=== PATIENT | male | born 1950 | race Caucasian/White ===

== ENCOUNTER → 2021-12-27 14:39 | Outpatient (BNVA) | payer MEDICARE, OTHER, SELFPAY | PROVIDERS: PCP Internal Medicine; Visit Provider Nurse Practitioner Family | DX: G47.52 REM sleep behavior disorder (principal); R06.02 Shortness of breath | CPT/HCPCS: 99202 ==

== ENCOUNTER → 2022-07-01 10:17 | Outpatient (BNVA) | payer MEDICARE, OTHER, SELFPAY | PROVIDERS: PCP Internal Medicine; Visit Provider Nurse Practitioner Family | DX: G20 Parkinson's disease (principal); G47.52 REM sleep behavior disorder; F09 Unspecified mental disorder due to known physiological condition | CPT/HCPCS: 99212 ==

== ENCOUNTER → 2022-12-30 09:24 | Outpatient (BNVA) | payer MEDICARE, OTHER, SELFPAY | PROVIDERS: PCP Internal Medicine; Visit Provider Nurse Practitioner Family | DX: G20 Parkinson's disease (principal); F09 Unspecified mental disorder due to known physiological condition; G47.52 REM sleep behavior disorder | CPT/HCPCS: 99212 ==

== ENCOUNTER 2023-05-06 09:28 | Outpatient (AMB) | payer MEDICARE, OTHER, SELFPAY ==
[2023-05-06 09:29] VITALS: BP 102/60; PULSE 83; O2SAT 95; BMI 37.1
--- NOTE | 2023-05-06 09:29 | A.OFFVIS_ITS ---
Intake Vital Signs 05/06/23 09:29 Height 5 ft 8 in Weight 244 lb 4 oz BMI 37.1 BP 102/60 Blood Pressure Location Rt brachial Position Sitting Pulse 83 Pulse Source Pulse Oximeter Pulse Oximetry (%) 95 Oxygen Delivery Method Room Air Intake Visit Reasons: 4m follow up parkinson - Confirmed Intake Note: Pt presents as a 4 month f/u for Parkinsons. Pts states she finds him slowing down more and forgetting. shes also waiting for the neruopsych evaluation as she would like to know how much is dementia and how much is Parkinsons. Pt's states she doesn't see improvement with with carbidopa levodopa and she has questions about the usage. Field Associate Required: No Accompanied by: Spouse Allergies benazepril Allergy (Intermediate, Verified 05/06/23 09:38) Cough duloxetine Allergy (Intermediate, Verified 05/06/23 09:38) Rash sertraline Allergy (Intermediate, Verified 05/06/23 09:38) Rash HPI HPI Comments History of Present Illness Details 72-yr-old male presents for f/u visit, accompanied by his . Pt denies any significant interval medical history changes. Pt's current PD medication regimen: CD-LD 25-100mg 1 tab bid. Pt is slower overall Pt is Ind w/ ADLs Pt reports tremor is better, but the tremor is more noticeable when holding a plate or a tool Pt's is concerned that pt's cognition is slower. For instance, pt's had a significant sudden bleed from her leg and pt was very slow to provide help. Pt himself states that she was giving conflicting directions but acknoledges that he did have some difficulty thinking of ways to troubleshoot. notes that in the past 6 months pt has had increased episodes of becoming verbally abusive- he becomes frustrated and yells at her. He denies depression, but endorses that he may feel anxious. He deneis any REM sleep behaviors but is restless at night. He is scheduled for a f/u ? in-lab PAP titration study through [facility]- Dr Collazo. He has not had neuro-psych eval yet. [facility] Medical History Aortic valve calcification Asthma, mild persistent Benign lipomatous neoplasm of skin and subcutaneous tissue COPD (chronic obstructive pulmonary disease) COVID-19 virus infection DM type 2 with diabetic peripheral neuropathy Erectile dysfunction Essential familial hypercholesterolemia HTN (hypertension) Memory loss Morbid obesity Nephrolithiasis LUIS ANTONIO (obstructive sleep apnea) Osteopenia Parkinson disease Rheumatic arteritis Rheumatoid arthritis Right lower lobe pulmonary nodule Right-sided Herrera's palsy Family History Father Diabetes Daughter Colon cancer Social History (Updated 05/06/23 @ 09:41 by Mackenzie Patel CMA) Household Members: Spouse Housing: House Alcohol intake: current Alcohol intake frequency: holidays/special occasions only Patient Tobacco Use Status: Former Tobacco user Review of Systems Const All systems reviewed & are unremarkable except as noted in HPI and below Physical Exam Vital Signs: Last Vital Signs Pulse 83 05/06/23 09:29 BP 102/60 05/06/23 09:29 Pulse Ox 95 05/06/23 09:29 Oxygen Delivery Method Room Air 05/06/23 09:29 BMI result Body Mass Index 37.1 Const General: cooperative and no acute distress Resp Effort & Inspection: normal respiratory effort and able to speak in complete sentences Neuro Other: Expression:? Mild decrease expression Voice:? Mildly soft voice Tremor:? Mild RUE rest tremor Tone:? Mild bilateral upper extremity rigidity Dyskinesia: n/a FFM:? Bilateral upper extremity mildly decreased Foot taps:? Bilateral lower extremity mildly bradykinetic Gait:? Stands slowly, right shoulder slightly dropped, slight decrease in arm swing stride okay. Psych:? Pleasant affect. Mild bradyohrenia Assessment & Plan Assessment & Plan (1) Parkinson disease: Code(s): G20 - Parkinson's disease (2) REM sleep behavior disorder: Code(s): G47.52 - REM sleep behavior disorder (3) Cognitive dysfunction: Code(s): F09 - Unspecified mental disorder due to known physiological condition Plan Continue CD-LD 25-100mg 1 tab bid- taken w/ small amt CHO. Continue clonazepam 0.5mg and melatonin q.h.s. Continue to keep bedroom free from clutter. Will f/u on referral for comprehensive neuropsych eval. Offered referal back to psycholoist- however pt is not interested at this time. Monitor mood. given info on PD support resources. Future consideration- optimizing venlafaxine tx. Coding Level of Care Code Est Pt Level 4 (18060) Diagnoses Parkinson disease G20 REM sleep behavior disorder G47.52 Cognitive dysfunction F09
== END 2023-05-06 10:42 | disposition home or self-care (01) ==
PROVIDERS: Visit Provider Nurse Practitioner Family
DX: G20 Parkinson's disease (principal); G47.52 REM sleep behavior disorder; R41.89 Other symptoms and signs involving cognitive functions and awareness
CPT/HCPCS: 99214

== ENCOUNTER → 2023-05-06 09:28 | Outpatient (BNVA) | payer MEDICARE, OTHER, SELFPAY | PROVIDERS: Visit Provider Nurse Practitioner Family | DX: G20 Parkinson's disease (principal); G47.52 REM sleep behavior disorder; F09 Unspecified mental disorder due to known physiological condition | CPT/HCPCS: 99212 ==

== ENCOUNTER 2023-09-10 12:42 | Outpatient (AMB) | payer MEDICARE, OTHER, SELFPAY ==
--- NOTE | 2023-09-10 12:59 | A.OFFVIS_ITS ---
Intake Vital Signs 09/10/23 13:02 Height 5 ft 8 in Weight 257 lb BMI 39.1 BP 110/64 Blood Pressure Location Rt brachial Position Sitting Pulse 85 Pulse Source Pulse Oximeter Pulse Oximetry (%) 95 Oxygen Delivery Method Room Air Intake Visit Reasons: 4m follow up parkinson-Confirmed Intake Note: Patient presents for 4 month follow up. Allergies benazepril Allergy (Intermediate, Verified 09/10/23 13:03) Cough duloxetine Allergy (Intermediate, Verified 09/10/23 13:03) Rash sertraline Allergy (Intermediate, Verified 09/10/23 13:03) Rash Medication List - Last Reconciled 09/10/23 by Amy Ventura, NICK albuterol sulfate 90 mcg/actuation 2 puffs PO QID PRN alpha lipoic acid 600 mg PO DAILY atorvastatin 40 mg PO DAILY carbidopa-levodopa 25-100 mg 1 tab PO BID 90 days clonazepam 0.5 mg PO DAILY PRN diclofenac sodium 75 mg PO BID PRN dulaglutide (Trulicity) 1.5 mg subcut QWEEK fluticasone propionate 50 mcg/actuation 1 spray intranasal BID folic acid 1 mg PO DAILY losartan 100 mg PO DAILY melatonin 20 mg PO BEDTIME metformin 1,000 mg PO BID methotrexate sodium 10 mg PO QWEEK multivitamin 1 tab PO DAILY omega 8-fmh-bhp-fish oil-krill 700 mg-600 mg- 900 mg (MegaRed Advanced 4-in-1) caps PO tamsulosin (Flomax) 0.4 mg PO BEDTIME venlafaxine ER 37.5 mg PO BID HPI HPI Comments History of Present Illness Details 73-yr-old xander presents for f/u visit, accompanied by his . Pt reports the following interval medical history changes: He has 2 recent UTIs, one was a/w sepsis and required hospitalization. F/b Dr Gomez. notes his initial s/s was worsening memory and moving slower, as well as urinary frequency. Pt's current PD medication regimen: CD-LD 25-100mg 1 tab bid Do medication effects last between doses: he does not notice. He did have the neuro-psych eval- which showed predominant difficulties with processing speed and aspects of executive function (e.g., set shifting and learning), which likely underscore some of his performances in other cognitive domains (e.g., word retrieval and speeded tasks) and appear related to his described difficulties in daily life. Memory was variable, and in part, may also be related to these disruptions. Overall, this pattern of performance is most consistent with frontal subcortical dysfunction , which meet criteria for mild Major Neurocognitive Disorder, of somewhat unclear etiology although concerning for a neurodegenerative process, especially in the context of a diagnosis of Parkinson?s disease. The report did raise ? of DLB as some cognitive difficulties seem to have preceded onset of PD motor symptoms, however pt has not had significant hallucinations. is wondering about doing f/u brain MRI or PET scan. Pt will begin participating in a new PD program through [employer] (unclear what the program is)- in the next few months. ADL's: Ind Swallowing: No issues Drooling: Some right sided drooling Orthostatic lightheadedness: Denies Constipation: Denies Freezing: Denies Stiffness: Denies Tremor: Notices tremor if holding something, now in BUE, still more so on the right Falls: None Hallucinations: Sometimes may feel that he sees something moving in his periphery. Memory: Some word retrieval difficulties. Forgets what he is about to say. Sleep: Voiding at least 4 times per night- on Flomax. He is still sleep talking. He may sleep on the couch- as it is more comfortable than the bed sometimes- states this area is free from clutter or obstacles where he could be injured. There is a gate to the cellar stairs. Exercise: Not much. just bought [employer] puppy- to encourage him to walk more. 09/24/21, Brain MRI wo: IMPRESSION: No evidence of acute or subacute infarct. Mild nonspecific white matter signal changes which most likely reflect chronic small vessel disease. Fluid in the left maxillary sinus can be correlated for clinical evidence of acute sinusitis. Fluid in the left mastoid air cells is nonspecific. [facility] Medical History (Updated 09/11/23 @ 09:08 by NICK Winter) Right-sided Herrera's palsy COVID-19 virus infection COPD (chronic obstructive pulmonary disease) Right lower lobe pulmonary nodule Rheumatic arteritis Osteopenia Nephrolithiasis Essential familial hypercholesterolemia Erectile dysfunction DM type 2 with diabetic peripheral neuropathy Benign lipomatous neoplasm of skin and subcutaneous tissue Asthma, mild persistent Aortic valve calcification Memory loss Parkinson disease LUIS ANTONIO (obstructive sleep apnea) Morbid obesity HTN (hypertension) Rheumatoid arthritis Family History Father Diabetes Daughter Colon cancer Social History Household Members: Spouse Housing: House Alcohol intake: current Alcohol intake frequency: holidays/special occasions only Patient Tobacco Use Status: Former Tobacco user Review of Systems Const All systems reviewed & are unremarkable except as noted in HPI and below Physical Exam Vital Signs: Last Vital Signs Pulse 85 09/10/23 13:02 BP 110/64 09/10/23 13:02 Pulse Ox 95 09/10/23 13:02 Oxygen Delivery Method Room Air 09/10/23 13:02 BMI result Body Mass Index 39.1 Const General: cooperative and no acute distress Resp Effort & Inspection: normal respiratory effort and able to speak in complete sentences Neuro Other: General: A&O, mild bradyphrenia, word finding difficulties. Expression:? Mild decrease expression Voice:? Mildly soft voice Tremor:? Mild RUE rest tremor Tone:? Mild bilateral upper extremity rigidity Dyskinesia: none FFM:? Bilateral upper extremity mildly decreased Foot taps:? Bilateral lower extremity mildly bradykinetic Gait:? Stands slowly, right shoulder slightly dropped, slight decrease in arm swing, stride okay. Psych:? Pleasant affect. Assessment & Plan Assessment & Plan (1) Parkinson's disease without dyskinesia: Code(s): G20.A1 - Parkinson's disease without dyskinesia, without mention of fluctuations (2) REM sleep behavior disorder: Code(s): G47.52 - REM sleep behavior disorder (3) Major neurocognitive disorder: Code(s): F03.90 - Unspecified dementia, unspecified severity, without behavioral disturbance, psychotic disturbance, mood disturbance, and anxiety Plan Reviewed neuropsych eval- mild progressive neurocognitive disorder, of somewhat unclear etiology per neuropsychologist. Pt advised to undergo Brain MRI w/o to assess for progression of intracerebral white matter changes, vascular injury, or cerebal volume changes. Reviewed that previous DATscan was a PETscan, however it does not assess for other neurodegenerative d/o's, ie FTD, AD. Upon review of MRI, we could consider PET scan. Concur w/ f/u neuro-psych testing in 12 months. Increase CD-LD 25-100mg from 1 tab bid to 1 tab TID- in hopes this reduces bradyphrenia. Continue clonazepam 0.5mg and melatonin q.h.s. Continue to keep bedroom/sleep area free from clutter. Monitor mood. Stressed importance of regular physical exercise for Parkinson's motor, mood, and cognitive s/s. Future consideration- optimizing venlafaxine tx, initiating neuro-protective agent. f/u in 3-4 months or sooner prn. Orders: Orders MR head/brain wo con 09/10/23 F09 - Unspecified mental disorder due to known physiological condition, G20 - Parkinson's disease, G47.52 - REM sleep behavior disorder, G51.0 - Herrera's palsy Medications: Changed From carbidopa-levodopa 25-100 mg take w/ a cracker 30 minutes before breakfast and dinner, 1 tab PO BID 90 days 180 tabs 1RF To carbidopa-levodopa 25-100 mg 1 tab PO TID 90 days 270 tabs 1RF Coding Level of Care Code Est Pt Level 4 (20815) Diagnoses Parkinson's disease without dyskinesia G20.A1 REM sleep behavior disorder G47.52 Major neurocognitive disorder F03.90
[2023-09-10 13:02] VITALS: BP 110/64; PULSE 85; O2SAT 95; BMI 39.1
== END 2023-09-10 13:55 | disposition home or self-care (01) ==
PROVIDERS: PCP Internal Medicine; Visit Provider Nurse Practitioner Family
DX: G20.A1 Parkinson's disease without dyskinesia, without mention of fluctuations (principal); G47.52 REM sleep behavior disorder; F03.90 Unspecified dementia, unspecified severity, without behavioral disturbance, psychotic disturbance, mood disturbance, and anxiety
CPT/HCPCS: 99214

== ENCOUNTER → 2023-09-10 12:42 | Outpatient (BNVA) | payer MEDICARE, OTHER, SELFPAY | PROVIDERS: PCP Internal Medicine; Visit Provider Nurse Practitioner Family | DX: G20.A1 Parkinson's disease without dyskinesia, without mention of fluctuations (principal); G47.52 REM sleep behavior disorder; F03.90 Unspecified dementia, unspecified severity, without behavioral disturbance, psychotic disturbance, mood disturbance, and anxiety | CPT/HCPCS: 99212 ==

== ENCOUNTER 2024-01-06 09:16 | Outpatient (AMB) | payer MEDICARE, OTHER, SELFPAY ==
--- NOTE | 2024-01-06 09:27 | A.OFFVIS_ITS ---
Intake Vital Signs 01/06/24 09:31 Height 5 ft 8 in Weight 257 lb 8 oz BMI 39.1 BP 130/80 Blood Pressure Location Lt brachial Position Sitting Pulse 89 Pulse Source Pulse Oximeter Pulse Oximetry (%) 98 Oxygen Delivery Method Room Air Intake Visit Reasons: 4 mnts f/u appt for Parkinson's-LVM Intake Note: Patient presents for 4 month F/U. Allergies benazepril Allergy (Intermediate, Verified 01/06/24 09:29) Cough duloxetine Allergy (Intermediate, Verified 01/06/24 09:29) Rash sertraline Allergy (Intermediate, Verified 01/06/24 09:29) Rash HPI HPI Comments History of Present Illness Details 73-yr-old male presents for f/u visit. Pt is not accompanied by his today. Pt denies any significant interval medical history changes. Pt notes that he is still prone to being forgetful. May also miss all of his morning meds- states may forget if he becomes distracted. Pt's current PD medication regimen: CD-LD 25-100mg 1 tab tid- occasionally may miss a dose. ADL's: Ind Swallowing: No issues Drooling: Some right sided drooling Orthostatic lightheadedness: Denies Constipation: Denies. May be nauseous in am x's 10 minutes then subsided. Freezing: Denies Stiffness: Denies Dyskinesias: Denies Tremor: Notices tremor if holding something, now in BUE, still more so on the right Falls: None Mood: not too good , becomes frustrated and angry at x's- often w/ his when she is talking about his forgetfulness. Hallucinations: Sometimes vivid dreams. Memory: Some word retrieval difficulties- but the word comes to him. Sleep: Now only waking up 1-2 x's per night to void since recent increase in Flomax. Generally sleeping 10pm-7am. He is still sleep talking. Not sleeping on the couch as much. Exercise: Not much. His is active w/ his puppy- so he is walking more. [facility] Medical History (Updated 09/11/23 @ 09:08 by NICK Winter) Right-sided Herrera's palsy COVID-19 virus infection COPD (chronic obstructive pulmonary disease) Right lower lobe pulmonary nodule Rheumatic arteritis Osteopenia Nephrolithiasis Essential familial hypercholesterolemia Erectile dysfunction DM type 2 with diabetic peripheral neuropathy Benign lipomatous neoplasm of skin and subcutaneous tissue Asthma, mild persistent Aortic valve calcification Memory loss Parkinson disease LUIS ANTONIO (obstructive sleep apnea) Morbid obesity HTN (hypertension) Rheumatoid arthritis Family History (Updated 01/06/24 @ 09:31 by Karen Allne CMA) Father Diabetes Daughter Colon cancer Social History Household Members: Spouse Housing: House Alcohol intake: current Alcohol intake frequency: holidays/special occasions only Patient Tobacco Use Status: Former Tobacco user Review of Systems Const All systems reviewed & are unremarkable except as noted in HPI and below Physical Exam Vital Signs: Last Vital Signs Pulse 89 01/06/24 09:31 BP 130/80 01/06/24 09:31 Pulse Ox 98 01/06/24 09:31 Oxygen Delivery Method Room Air 01/06/24 09:31 BMI result Body Mass Index 39.1 Const General: cooperative and no acute distress Resp Effort & Inspection: normal respiratory effort and able to speak in complete sentences Neuro Other: General: A&O, no significant bradyphrenia or word finding difficulties. Expression:? Mild decrease expression Voice:? Mildly soft voice Tremor:? Mild RUE rest tremor Tone:? Mild bilateral upper extremity rigidity Dyskinesia: none FFM:? Bilateral upper extremity mildly decreased Foot taps:? Bilateral lower extremity mildly bradykinetic Gait:? Stands slowly, right shoulder slightly dropped, slight decrease in arm swing, stride okay. Psych:? Pleasant affect. Assessment & Plan Assessment & Plan (1) Parkinson's disease without dyskinesia: Code(s): G20.A1 - Parkinson's disease without dyskinesia, without mention of fluctuations (2) REM sleep behavior disorder: Code(s): G47.52 - REM sleep behavior disorder (3) Major neurocognitive disorder: Code(s): F03.90 - Unspecified dementia, unspecified severity, without behavioral di sturbance, psychotic disturbance, mood disturbance, and anxiety Plan Previous work-up: Neuropsych eval- mild progressive neurocognitive disorder, of somewhat unclear etiology per neuropsychologist. Reviewed Brain MRI w/o- mild scattered chronic microvascular ischemic changes. Advsied to set a reminder in his phone to take his meds, ask his to double check in the am as well. Discussed trying Namenda to help w/ cognitive difficulties, pt would like to hold until after his next f/u RBD f/u visit this month. Offered to initiate order for f/u neuro-psych testing- pt would prefer to wait until his f/u appt. Continue CD-LD 25-100mg from 1 tab TID. Continue clonazepam 0.5mg and melatonin q.h.s. Continue to keep bedroom/sleep area free from clutter. Monitor mood. Increase regular physical exercise- for Parkinson's motor, mood, and cognitive s/s. Information shared on local PD exercise classes. Future consideration- optimizing venlafaxine tx, initiating neuro-protective agent. f/u in 6 months or sooner prn. Coding Level of Care Code Est Pt Level 4 (32356) Diagnoses Parkinson's disease without dyskinesia G20.A1 REM sleep behavior disorder G47.52 Major neurocognitive disorder F03.90
[2024-01-06 09:31] VITALS: BP 130/80; PULSE 89; O2SAT 98; BMI 39.1
== END 2024-01-06 10:48 | disposition home or self-care (01) ==
PROVIDERS: PCP Internal Medicine; Visit Provider Nurse Practitioner Family
DX: G20.A1 Parkinson's disease without dyskinesia, without mention of fluctuations (principal); G47.52 REM sleep behavior disorder; F03.90 Unspecified dementia, unspecified severity, without behavioral disturbance, psychotic disturbance, mood disturbance, and anxiety
CPT/HCPCS: 99214

== ENCOUNTER → 2024-01-06 09:16 | Outpatient (BNVA) | payer MEDICARE, OTHER, SELFPAY | PROVIDERS: PCP Internal Medicine; Visit Provider Nurse Practitioner Family | DX: G20.A1 Parkinson's disease without dyskinesia, without mention of fluctuations (principal); G47.52 REM sleep behavior disorder; F03.90 Unspecified dementia, unspecified severity, without behavioral disturbance, psychotic disturbance, mood disturbance, and anxiety | CPT/HCPCS: 99212 ==

== ENCOUNTER 2025-01-04 09:46 | Outpatient (AMB) | payer MEDICARE, OTHER, SELFPAY ==
--- NOTE | 2025-01-04 09:47 | A.OFFVIS_ITS ---
Vital Signs 01/04/25 09:48 Height 5 ft 8 in Weight 257 lb BMI 39.1 Pulse 82 Pulse Source Pulse Oximeter Pulse Oximetry (%) 98 Oxygen Delivery Method Room Air Intake Visit Reasons: 5 mnts f/u Intake Note: Patient following up for 6 month parkinson's disease. Allergies benazepril Allergy (Intermediate, Verified 01/04/25 09:50) Cough duloxetine Allergy (Intermediate, Verified 01/04/25 09:50) Rash sertraline Allergy (Intermediate, Verified 01/04/25 09:50) Rash Medication List - Last Reconciled 01/04/25 by NICK Winter albuterol sulfate 90 mcg/actuation 2 puffs PO QID PRN alpha lipoic acid 600 mg PO DAILY atorvastatin 40 mg PO DAILY carbidopa-levodopa 25-100 mg 1 tab PO TID 90 days clonazepam 0.5 mg PO DAILY 90 days diclofenac sodium 75 mg PO BID PRN dulaglutide (Trulicity) 1.5 mg subcut QWEEK exenatide microspheres ER (Bydureon BCise) 2 mg subcut Q7D ferrous sulfate 325 mg PO Q OTHER DAY fluticasone propionate 50 mcg/actuation 1 spray intranasal BID folic acid 1 mg PO DAILY losartan 100 mg PO DAILY melatonin 20 mg PO BEDTIME memantine 7 mg PO DAILY 30 days metformin 1,000 mg PO BID methotrexate sodium 10 mg PO QWEEK multivitamin 1 tab PO DAILY omega 1-sms-ibk-fish oil-krill 700 mg-600 mg- 900 mg (MegaRed Advanced 4-in-1) caps PO tamsulosin (Flomax) 0.4 mg PO BEDTIME venlafaxine 75 mg PO BID 90 days venlafaxine ER 37.5 mg PO BID HPI Comments Details: 74-yr-old male presents for f/u visit of parkinson's disease. Pt is accompanied by his today. Pt denies any significant interval medical history changes. Pt underwent recent f/u neuropsych evaluation, results of which were consistent with mild dementia, however there were notable declines since previous evaluation 18 months prior. Patient does not have any specific questions today, other than to review his recent follow-up neuropsych evaluation results. Of note, today patient endorses history of 20 year service through the [employer]-he does not currently have active VA care. And is unsure if he is eligible for VA benefits, though he does receive a pension. Pt's current PD medication regimen: CD-LD 25-100mg 1 tab tid- occasionally may miss a dose. ADL's: Ind Swallowing: No issues Drooling: Some right sided drooling Orthostatic lightheadedness: A little if he stands up quickly. Tries to drink plenty of water. Constipation: Denies. Freezing: Denies Stiffness: Denies Dyskinesias: Denies Tremor: pt states stable, thinks a bit progressed, sees BUE rest tremor. now in BUE. Falls: recent fall- no injuries- tripped over his tools. Mood: stable- becomes frustrated and angry at x's- often w/ his when she is talking about his forgetfulness. Hallucinations: May see something in his peripheral vision that is not there. Memory: Some word retrieval difficulties- but the word comes to him. Forgetfulness. Sleep: Now only waking up 1-2 x's per night to void- better since starting Flomax. Generally sleeping 10pm-7am. He is still sleep talking- but no known sleep behaviors. Not sleeping on the couch as much. Exercise: encouraging him to do yard work now that the weather is warming up. His is active w/ his puppy- so he is walking more. [facility] Medical History Right-sided Herrera's palsy COVID-19 virus infection COPD (chronic obstructive pulmonary disease) Right lower lobe pulmonary nodule Rheumatic arteritis Osteopenia Nephrolithiasis Essential familial hypercholesterolemia Erectile dysfunction DM type 2 with diabetic peripheral neuropathy Benign lipomatous neoplasm of skin and subcutaneous tissue Asthma, mild persistent Aortic valve calcification Memory loss Parkinson disease LUIS ANTONIO (obstructive sleep apnea) Morbid obesity HTN (hypertension) Rheumatoid arthritis Family History Father Diabetes Daughter Colon cancer Social History Household Members: Spouse Housing: House Alcohol intake: current Alcohol intake frequency: holidays/special occasions only Patient Tobacco Use Status: Former Tobacco user Physical Exam Vital Signs: Last Vital Signs Pulse 82 01/04/25 09:48 Pulse Ox 98 01/04/25 09:48 Oxygen Delivery Method Room Air 01/04/25 09:48 BMI result Body Mass Index 39.1 Const General: cooperative and no acute distress Resp Effort & Inspection: normal respiratory effort and able to speak in complete sentences Neuro Other: General: A&O, no significant bradyphrenia or word finding difficulties. Expression:? Mild decrease expression, right facial droop Voice:? Mildly soft voice Tremor:? Mild RUE rest tremor Tone:? Mild bilateral upper extremity rigidity Dyskinesia: none FFM:? Bilateral upper extremity mildly decreased Foot taps:? Bilateral lower extremity bradykinetic Gait:? Stands slowly, right shoulder slightly dropped, slight decrease in arm swing, stride okay. Psych:? Pleasant affect. Results Reviewed Results Reviewed: 12/15/2024, neuropsychological evaluation report SUMMARY? ? Verbal list learning is characterized by a blunted learning curve with exceptionally low acquisition of words across trials. Recall of the list is in the below average range, though demonstrates low average retention of information. Recognition of the list is also low average. Verbal memory for stories is below average for immediate and delayed recall with relatively intact recognition. Visual memory is below average for immediate recall and exceptionally low for delayed recall with relatively intact recognition of the figures. Visual abstract reasoning is exceptionally low and demonstrates a decline compared to prior evaluation. Set shifting is also exceptionally low and is unable to be completed in the allotted time and characterized by two errors, which is also a decline compared to the prior evaluation. Processing speed is exceptionally low. Basic line discrimination and visuoconstruction of a complex figure are exceptionally low and are both declines compared to the prior evaluation. Letter fluency and category fluency are exceptionally low. Basic attention for sequencing is below average. Auditory basic attention, working memory, and naming are relatively intact. Psychologically, he endorses minimal symptoms of anxiety and depression.? ? IMPRESSIONS ?? 1.?Major neurocognitive disorder (i.e., dementia) with prominent difficulties in aspects of executive function (learning, set shifting, verbal abstract reasoning, and visual abstract reasoning), visuospatial abilities, and processing speed.? 2.?Declines compared to prior neuropsychological evaluation in aspects of visuospatial skills, visual memory, and aspects executive function with otherwise relative stability in other domains ? Test results reveal prominent difficulties in aspects of executive function (learning, set shifting, verbal abstract reasoning, and visual abstract reasonin g), visuospatial abilities, and processing speed. It is suspected that the difficulties captured in aspects of executive function likely underscore his performances on verbal memory tasks, as his verbal memory performances are relatively stable to slightly improved compared to the prior evaluation. Visual memory appears affected by his lower visuospatial abilities and aspects of executive function. Compared to his prior evaluation, there are notable declines in areas of visuospatial abilities, visual memory, aspects of executive function, and semantic fluency. Given his current cognitive profile and his need for assistance in daily life, he continues to meet criteria for a major neurocognitive disorder (i.e., dementia), likely mild in severity. Regarding etiology, his declines captured on testing is consistent with the potential presence of a neurodegenerative process. As mentioned in the prior evaluation, the timeline appears to suggest cognitive symptoms prior to/around the same time as his physical symptoms, which is more suggestive of Dementia with Lewy Body and his overall cognitive profile is consistent with etiology. That said, there is the absence of some of the hallmark features. 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 His profile is less concerning for the additional presence of primary amnestic s yndrome. Continued work-up and monitoring is recommended to help further elucidate the primary shuttle bus driver of his cognitive changes. ? RECOMMENDATIONS? ? 1.?He is encouraged to work with a specialist on helping to identify the presence of a potential alpha-synucleinopathy. This could include other neuroimaging scans (such as a COLBY Scan) and/or potentially a skin biopsy.? ? 2.?Continuing to monitor for changes is recommended and providing additional supports, as this is likely to worsen over time based on the declines captured on testing.? ? 3.?He is encouraged to continue to manage his cardiovascular health as the risk of future decline is likely, in part, related to this. This includes managing chronic conditions, engaging in regular physical activity, reducing stress, and eating a heart healthy diet.? ? 4.?Engaging in mentally, socially, and physically stimulating activities is recommended, as this is not only good for overall health and well-being but cognitive health.? ? 5.?Resources through the local senior center and the Alzheimer?s Disease Association (ww.alz.org) might be beneficial.? ? 6.?If in the future he or his family would like to continue to monitor for future decline, a re-evaluation would be warranted in 12-18 months.? It was a pleasure to meet with Mr. Bravo and participate in his care. These results and recommendations were discussed with him and his spouse following this evaluation. If there are any questions regarding the results and recommendations presented in this evaluation, please do not hesitate to contact the office at [phone].? Irma Franklin, PhD Clinical Neuropsychologist? Licensed Psychologist? Assessment & Plan Assessment & Plan (1) Parkinson's disease without dyskinesia: Code(s): G20.A1 - Parkinson's disease without dyskinesia, without mention of fluctuations Category: Medical (2) REM sleep behavior disorder: Code(s): G47.52 - REM sleep behavior disorder Category: Medical (3) Major neurocognitive disorder: Code(s): F03.90 - Unspecified dementia, unspecified severity, without behavioral disturbance, psychotic disturbance, mood disturbance, and anxiety Category: Medical Plan Reviewed recent Neuropsych consult- discussed that patient has had a positive DaTSCAN in the past, and this in the setting of his motor and non motor symptoms, are consistent with a parkinsonian disorder. Today, patient's believes that patient developed REM sleep behaviors at least 12 years ago, and overall slowness and stiffness a few years before onset of cognitive difficulties. Patient has follow-up with [facility]- will review recent neuro psych results with them as well. We will request 12-18 month follow-up neuropsychiatric evaluation at [facility] neuropsychiatry- order placed now. Brain MRI w/o- mild scattered chronic microvascular ischemic changes. DaTSCAN- right greater than left dopaminergic deficiency- done at [facility]. Patient's is helping him with medication reminders Start memantine ER 7 mg p.o. daily Continue CD-LD 25-100mg from 1 tab TID. Increase venlafaxine from 37.5 mg p.o. b.i.d. to 75 mg p.o. b.i.d. Continue clonazepam 0.5mg and melatonin q.h.s. Continue to keep bedroom/sleep area free from clutter. Monitor mood. Increase regular physical exercise- for Parkinson's motor, mood, and cognitive s/s. Information shared on local PD exercise classes. f/u in 6 months or sooner prn. Orders: Referrals Neuropsychiatry Referral F03.90 - Unspecified dementia, unspecified severity, without behavioral disturbance, psychotic disturbance, mood disturbance, and anxiety, G20.A1 - Parkinson's disease without dyskinesia, without mention of fluctuations Medications: New memantine then stop and increase to 14mg qd 7 mg PO DAILY 30 days 30 ea 0RF venlafaxine 75 mg PO BID 90 days 180 tabs 1RF anxiety/depression Refilled carbidopa-levodopa 25-100 mg 1 tab PO TID 90 days 270 tabs 1RF clonazepam 0.5 mg PO DAILY 90 days 90 tabs 1RF Coding Level of Care Code Est Pt Level 4 (97940) Complex EM visit Add On G2211 Diagnoses Parkinson's disease without dyskinesia G20.A1 REM sleep behavior disorder G47.52 Major neurocognitive disorder F03.90
[2025-01-04 09:48] VITALS: PULSE 82; O2SAT 98; BMI 39.1
--- OUTSIDE RECORDS SUMMARY | 2025-01-04 11:11 | XMS_ITS | Encounter Summary ---
Author Organization [facility] and [facility] Address [address] [place] [phone] Care Team Providers Care Head Of Sales And Marketing Name Role Phone Israel Magana MD Primary Care Provider + [phone] Encounter Details Date Type Department Care Team (Late st Contact Info) Description 07/05/2021 Documentation [facility] at [address] [place] [address] [place] [address] Chema Gee MD [address] [place] [phone] Social History Tobacco Use Types Packs/Day Years Used Date Smoking Tobacco: Never Assessed Sex and Gender Information Value Date Recorded Sex Assigned at Male 08/30/2021 10:04 AM EST Legal Sex Male 2:12 PM EDT Gender Identity Male 08/30/2021 10:04 AM EST Sexual Orientation Straight 08/30/2021 10 :04 AM EST documented as of this encounter Progress Notes * Dylon Whitt - 07/05/2021 12:53 PM EDT Title: Tracing the Origin and Progression of Parkinson???s Disease through the [employer] Protocol version:17 Protocol Date:?? Date:??05-Jul-2021 Visit: Screening ??Visit #1 ?? Date of consent: 05-Jul-2021 Time of consent:??10:27 a.m Informed consent version and date: 06 Apr 2021 ?? Visit Notes: Screening assessments completed: collection of demographic information , age, medical history, medications, sleep and neurological history and review of inclusion/exclusion criteria. This visit is conducted remotely??by ??CRC. Patient does not have symptoms of parkinsonism, including rigidity, slowness of movement and tremor.??Patient does have RBD?confirmed by . Age: 70 Gender: Male Ethnicity: Non- Race: White PMH Condition Yes/No Comments: Medication taking Dose 1. Hypertension Yes Losartan 100 mg 2. Diabetes Yes Metformin 1000 mg 3. Heart Attack No 4. Stroke No 5. High Cholesterol Yes Atorvastatin 40 mg 6. Heart Failure No 7. Asthma No 8. Lung Disease No 9. Sleep Apnea No 10. Parkinson???s Disease No 11. Melanoma No 12. Other cancer No 13. a. Other medical Yes Anxiety Effexor XR 37.5 b. Other medical Yes BPH Tamsulosin 0.4 mg c. Other medical Yes Rheumatoid arthritis Methotrexate 2.5 mg *UNK is entered for UNK date or month According to patient these are the only PMH Family History: Disease Yes/No If yes, who had it? 1, Biological Mother 2, Biological Father 3, Full Siblings 4, Half Siblings 5, Maternal Grandparents 6, Paternal Grandparents 7, Maternal Aunts and Uncles 8, Paternal Aunts and Uncles 9, Children 10, Other ( if other whom?) Parkinson???s Disease No Lewy Body Dementia No Multiple System Atrophy No Other dementing or neurodegenerative disease No PD risk Questions: Question Yes/No Comments Regular pesticide exposure (>= 100 episodes of non-occupational exposure)? No Occupational Solvent exposure No Caffeinated beverages (i.e coffee, tea, redbull, energy drinks, cola etc) No If yes: how many per day? Once a week Smoking Yes How many per day? A pack Past/Current? Past Number of years? 25 years Physically active, getting more than 1 hour /week of physical activity causing elevated heart rate and blood pressure? No Date of RBD Diagnosis: 12/27/2020 Current medical history: Condition Category of the medical Condition 1, Dermatological 2, Ophthalmological 3, ENT 4, Pulmonary 5, Cardiovascular 6, Gastrointestinal 7, Hepatobiliary 8, Renal 9, Gynecological/Urologic 10, Musculoskeletal 11, Metabolic/Endocrine 12, Hemato/Lymphatic 13, Neurologic (other than disease under study) 14, Psychiatric 15, Allergy/Immunologic 99, Other Year of Diagnosis Resolved Y/N Year of Resolution Benign prostatic hyperplasia 9 2010 ongoing Hypertension 5 2010 ongoing Hyperlipidemia 5 2010 ongoing Diabetes 11 2010 ongoing Rheumatoid Arthritis 10 2005 ongoing Anxiety 14 2015 ongoing Concomitant Medications: Name Dose Units Frequency 1, QD 2, BID 3, TID 4, QID 5, QH 6, PRN 7, Other Route 1, IV 2, IM 3, PO 4, SC 5, MO 6, Sublingual 7, Inhaled 8, Topical 9, Other Start Date (DDMMMYYYY) Ongoing/Stop Date (DDMMMYYYY) Indication 1 - Adverse Event (specify) 2 - Medical History (specify) 3 - Premedication 4 - Prophylaxis 5 - Other (specify) Tamsulosin 0.4 mg 1, QD 3, PO 2010 Ongoing 2- Medical History - BPH Melatonin .5 mg 7, Other 3 tab at night 3, PO UNK 2020 Ongoing 2- Medical History- RBD Losartan 100 mg 1, QD 3, PO 2010 Ongoing 2- Medical History- Hypertension Effexor XR 37.5 mg 1, QD 3, PO K 2017 Ongoing 2- Medical History- Anxiety Metformin 1000 mg 2, BID 3, PO 2010 Ongoing 2- Medical History- diabetes Atorvastatin 40 mg 1, QD 3, PO UN2010 Ongoing 2- Medical History- High cholesterol Folic Acid 1 mg 1, QD 3, PO UNK 2013 Ongoing 5- Other- Vitamins Aspirin 81 mg 1, QD 3, PO 2010 Ongoing 4-PPX Methotrexate 2.5 mg 7, 4 tab once a/week 3, PO 2006 Ongoing 2- Medical History Lapoic acid 600 mg 1, QD 3,PO UN2010 Ongoing 5- Other- Vitamins Adverse Events: none Patient was able to print/save a signed copy of the consent form from [facility]. Patient knows to call with any questions or concerns. documented in this encounter Plan of Treatment Upcoming Encounters Date Type Department Care Team (Late st Contact Info) Description 01/18/2025 1:00 PM EDT Office Visit [facility] [address] [place] [phone] Valentín Vázquez MD [address] [place] [phone] documented as of this encounter Visit Diagnoses Not on filedocumented in this encounter Care Teams Head Of Sales And Marketing Relationship Specialty Start Date End Date Israel Magana MD [address] [place] [phone] PCP - General Internal Medicine 08/31/21 documented as of this encounter
--- OUTSIDE RECORDS SUMMARY | 2025-01-04 11:12 | XMS_ITS | Encounter Summary ---
Author Organization [facility] and [facility] Address [address] [place] [phone] Care Team Providers Care Railroad Switchman Name Role Phone Israel Magana MD Primary Care Provider [phone] Encounter Details Date Type Department Care Team (Late st Contact Info) Description 07/05/2021 Scanned Document INTERFACE DEFAULT [address] [place] [phone] System, Provider Not In Social History Tobacco Use Types Packs/Day Years Used Date Smoking Tobacco: Never Assessed Sex and Gender Information Value Date Recorded Sex Assigned at Male 08/30/2021 10:04 AM EST Legal Sex Male 2:12 PM EDT Gender Identity Male 08/30/2021 10:04 AM EST Sexual Orientation Straight 08/30/2021 10 :04 AM EST documented as of this encounter Plan of Treatment Upcoming Encounters Date Type Department Care Team (Late st Contact Info) Description 01/18/2025 1:00 PM EDT Office Visit [facility] [address] [place] [phone] Valentín Vázquez MD [address] [place] [phone] documented as of this encounter Visit Diagnoses Not on filedocumented in this encounter Care Teams Railroad Switchman Relationship Specialty Start Date End Date Israel Magana MD [facility] [place] [phone] PCP - General Internal Medicine 08/31/21 documented as of this encounter
--- OUTSIDE RECORDS SUMMARY | 2025-01-04 11:12 | XMS_ITS ---
Author Name [facility] Organization Unknown Encounters Encounter Type Encounter Reason Primary Diagnosis Location Date [facility] 12/04/2024 [facility] 12/04/2024 Care Team Organization Name Specialty Phone Email Start Date End Da [facility] Internal Medicine [facility] 12/08/2024
--- OUTSIDE RECORDS SUMMARY | 2025-01-04 11:12 | XMS_ITS | Clinical Summary ---
Author Organization [address] Address [address] [place] [phone] Phone Care Team Providers Care Continuous Dryout Operator Helper Name Role Phone Israel Magana MD Primary Care Provider + [phone] Active Problems Problem Noted Date Diagnosed Date Research study patient 07/08/2021 Immunizations Name Administration Dates Next Due Influenza, trivalent, injectable, contains prese rvative 07/02/2024 Social History Tobacco Use Types Packs/Day Years Used Date Smoking Tobacco: Never Assessed Sex and Gender Information Value Date Recorded Sex Assigned at Male 08/30/2021 10:04 AM EST Legal Sex Male 2:12 PM EDT Gender Identity Male 08/30/2021 10:04 AM EST Sexual Orientation Straight 08/30/2021 10 :04 AM EST Last Filed Vital Signs Vital Sign Reading Time Taken Comments Blood Pressure 142/88 01/13/2024 12:28 PM EDT Pulse 77 01/13/2024 12:28 PM EDT Temperature 36.5 ??C (97.7 ??F) 01/13/2024 1 2:28 PM EDT Respiratory Rate 18 01/13/2024 12:2 8 PM EDT Oxygen Saturation 95% 01/13/2024 12: 28 PM EDT Inhaled Oxygen Concentration - - Weight 108.3 kg (238 lb 12.1 oz) 07/10/2021 9:32 AM EDT Height 171.7 cm (5' 7.6 ) 07/10/2021 9:32 AM EDT Body Mass Index 36.74 07/10/2021 9:32 AM EDT Plan of Treatment Upcoming Encounters Date Type Department Care Team (Late st Contact Info) Description 01/18/2025 1:00 PM EDT Office Visit [facility] at [address] [address] Valentín Vázquez MD [address] [place] [phone] Health Maintenance Due Date Last Done Comments HIV screening 1965 Hepatitis C screening 1970 Lipid disorder screening 1992 Colon cancer screening, Colonoscopy 1997 Diabetes screening 1997 Covid-19 vaccine series ( season) 2024 08/05/2023, 09/17/2021, 01/10/2021, Additional history exists Influenza vaccine 05/30/2025 07/02/2024, , 07/16/2022, Additional history exists Tetanus adult (Td q 10,TDAP once) 11/06/2031 11/06/2021 Shingles vaccine (Shingrix) Completed 03/13/2019, 0 10/05/2018 Pneumococcal Vaccine (50+ years) Completed 02/21/2023, 04/02/2019, 06/26/2015, Additional history exists RSV Immunization Completed 08/05/2023 Meningococcal Vaccine Aged Out No ruthy kellie eligible based on patient's age to complete this topic Insurance MEDICARE [employer] MEDICARE [employer] MEDICARE [facility] Care Teams Continuous Dryout Operator Helper Relationship Specialty Start Date End Date Israel Magana MD [address] [place] [phone] PCP - General Internal Medicine 08/31/21
== END 2025-01-04 11:07 | disposition home or self-care (01) ==
LOC: HO.HSMS 09:46
PROVIDERS: PCP Internal Medicine; Visit Provider Nurse Practitioner Family
DX: G20.A1 Parkinson's disease without dyskinesia, without mention of fluctuations (principal); G47.52 REM sleep behavior disorder; F03.90 Unspecified dementia, unspecified severity, without behavioral disturbance, psychotic disturbance, mood disturbance, and anxiety
CPT/HCPCS: 99214; G2211

== ENCOUNTER → 2025-01-04 09:46 | Outpatient (BNVA) | payer MEDICARE, OTHER, SELFPAY | PROVIDERS: PCP Internal Medicine; Visit Provider Nurse Practitioner Family | DX: G20.A1 Parkinson's disease without dyskinesia, without mention of fluctuations (principal); G47.52 REM sleep behavior disorder; F03.90 Unspecified dementia, unspecified severity, without behavioral disturbance, psychotic disturbance, mood disturbance, and anxiety | CPT/HCPCS: 99212 ==

== ENCOUNTER 2025-08-10 10:31 | Outpatient (AMB) | payer MEDICARE, OTHER, SELFPAY ==
[2025-08-10 10:56] VITALS: BP 120/72; PULSE 84; O2SAT 97; BMI 36.3
--- NOTE | 2025-08-10 10:56 | A.OFFVIS_ITS ---
Vital Signs 08/10/25 10:56 Height 5 ft 8 in Weight 239 lb BMI 36.3 BP 120/72 Blood Pressure Location Lt brachial Position Sitting Pulse 84 Pulse Source Pulse Oximeter Pulse Oximetry (%) 97 Oxygen Delivery Method Room Air Intake Visit Reasons: 6 mnts f/u appt (COMF.) Intake Note: Patient following up for 6 month parkinson's disease. 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: No Accompanied by: Self / Same As Patient Allergies benazepril Allergy (Intermediate, Verified 08/10/25 10:57) Cough duloxetine Allergy (Intermediate, Verified 08/10/25 10:57) Rash sertraline Allergy (Intermediate, Verified 08/10/25 10:57) Rash Medication List - Last Reconciled 08/10/25 by NICK Winter albuterol sulfate 90 mcg/actuation 2 puffs PO QID PRN alpha lipoic acid 600 mg PO DAILY atorvastatin 40 mg PO DAILY carbidopa-levodopa 25-100 mg 1 tab PO TID 90 days clonazepam 0.5 mg PO DAILY 90 days diclofenac sodium 75 mg PO BID PRN dulaglutide (Trulicity) 1.5 mg subcut QWEEK exenatide microspheres ER (Bydureon BCise) 2 mg subcut Q7D ferrous sulfate 325 mg PO Q OTHER DAY fluticasone propionate 50 mcg/actuation 1 spray intranasal BID folic acid 1 mg PO DAILY losartan 100 mg PO DAILY melatonin 20 mg PO BEDTIME memantine 10 mg PO BID 90 days metformin 1,000 mg PO BID methotrexate sodium 10 mg PO QWEEK multivitamin 1 tab PO DAILY omega 8-cio-fqc-fish oil-krill 700 mg-600 mg- 900 mg (MegaRed Advanced 4-in-1) caps PO tamsulosin (Flomax) 0.4 mg PO BEDTIME venlafaxine 75 mg PO BID 90 days venlafaxine ER 37.5 mg PO BID HPI Comments Details: 74-yr-old male presents for f/u visit of parkinson's disease. Pt is accompanied by his . Pt denies any significant interval medical history changes. He has had f/u w/ Elina, who has increased his CD-LD IR 25-100mg tab to 2 tabs QID, in hopes this would reudce his rigidity and tremor. Pt's current PD medication regimen: CD-LD 25-100mg 2 tabs QID. He has started memantine, and has increased dose to 10 mg twice a day (memantine ER was not covered by his insurance). He is now more compliant with taking his doses. ADL's: Ind Swallowing: No issues Drooling: Some bilateral drooling Orthostatic lightheadedness: Denies recent lightheadedness. Tries to drink plenty of water. Constipation: Denies. Freezing: Denies Stiffness: Some stiffness Dyskinesias: Denies Tremor: tremor is overall stable, may see it when he is holding a plate or trying to use a screwdriver. Falls: recent fall- no injuries- tripped over his tools. Mood: feels his mood is better since the CD-LD, he seems less frustrated with his ability to move better. He is doing more things on his own. Hallucinations: Denies Memory: Stable word finding difficulties and may forget where he put his wallet- then it comes to him. He now wears a watch that helps him remember to take his meds. Sleep: Generally sleeping 10pm-7am. He is still sleep talking and occassionally will swing his arms. Has not left the bed.- Exercise: He is doing some PD exercises at home.. His is active w/ his puppy- so he is walking more. General history: He endorses history of 20 year service through the [employer]-he does not currently have active VA care. However, he is unsure if he is eligible for VA benefits, though he does receive a [facility] pension. [facility] Medical History Right-sided Herrera's palsy COVID-19 virus infection COPD (chronic obstructive pulmonary disease) Right lower lobe pulmonary nodule Rheumatic arteritis Osteopenia Nephrolithiasis Essential familial hypercholesterolemia Erectile dysfunction DM type 2 with diabetic peripheral neuropathy Benign lipomatous neoplasm of skin and subcutaneous tissue Asthma, mild persistent Aortic valve calcification Memory loss Parkinson disease LUIS ANTONIO (obstructive sleep apnea) Morbid obesity HTN (hypertension) Rheumatoid arthritis Family History Father Diabetes Daughter Colon cancer Social History Household Members: Spouse Housing: House Alcohol intake: current Alcohol intake frequency: holidays/special occasions only Patient Tobacco Use Status: Former Tobacco user Physical Exam Vital Signs: Last Vital Signs Pulse 84 08/10/25 10:56 BP 120/72 08/10/25 10:56 Pulse Ox 97 08/10/25 10:56 Oxygen Delivery Method Room Air 08/10/25 10:56 BMI result Body Mass Index 36.3 Const General: cooperative and no acute distress Resp Effort & Inspection: normal respiratory effort and able to speak in complete sentences Neuro Other: General: A&O, no significant bradyphrenia or word finding difficulties. Expression:? Mild decrease expression, right facial droop Voice:? Mildly soft voice Tremor:? Mild RUE rest and postural tremor Tone:? Mild right upper extremity rigidity Dyskinesia: none FFM:? Bilateral upper extremity mildly decreased, more so on right Foot taps:? Bilateral lower extremity bradykinesia, more so on right Gait:? Stands slowly, right shoulder slightly dropped, slight decrease in arm swing, stride okay. Psych:? Pleasant affect. Results Reviewed Results Reviewed: 12/15/2024, neuropsychological evaluation report SUMMARY? ? Verbal list learning is characterized by a blunted learning curve with exceptionally low acquisition of words across trials. Recall of the list is in the below average range, though demonstrates low average retention of information. Recognition of the list is also low average. Verbal memory for stories is below average for immediate and delayed recall with relatively intact recognition. Visual memory is below average for immediate recall and excepti onally low for delayed recall with relatively intact recognition of the figures. Visual abstract reasoning is exceptionally low and demonstrates a decline compared to prior evaluation. Set shifting is also exceptionally low and is unable to be completed in the allotted time and characterized by two errors, which is also a decline compared to the prior evaluation. Processing speed is exceptionally low. Basic line discrimination and visuoconstruction of a complex figure are exceptionally low and are both declines compared to the prior evaluation. Letter fluency and category fluency are exceptionally low. Basic attention for sequencing is below average. Auditory basic attention, working memory, and naming are relatively intact. Psychologically, he endorses minimal symptoms of anxiety and depression.? ? IMPRESSIONS ?? 1.?Major neurocognitive disorder (i.e., dementia) with prominent difficulties in aspects of executive function (learning, set shifting, verbal abstract reasoning, and visual abstract reasoning), visuospatial abilities, and processing speed.? 2.?Declines compared to prior neuropsychological evaluation in aspects of visuospatial skills, visual memory, and aspects executive function with otherwise relative stability in other domains ? Test results reveal prominent difficulties in aspects of executive function (learning, set shifting, verbal abstract reasoning, and visual abstract reasoning), visuospatial abilities, and processing speed. It is suspected that the difficulties captured in aspects of executive function likely underscore his performances on verbal memory tasks, as his verbal memory performances are relatively stable to slightly improved compared to the prior evaluation. Visual memory appears affected by his lower visuospatial abilities and aspects of executive function. Compared to his prior evaluation, there are notable declines in areas of visuospatial abilities, visual memory, aspects of executive function, and semantic fluency. Given his current cognitive profile and his need for assistance in daily life, he continues to meet criteria for a major neurocognitive disorder (i.e., dementia), likely mild in severity. Regarding etiology, his declines captured on testing is consistent with the potential presence of a neurodegenerative process. As mentioned in the prior evaluation, the timeline appears to suggest cognitive symptoms prior to/around the same time as his physical symptoms, which is more suggestive of Dementia with Lewy Body and his overall cognitive profile is consistent with etiology. That said, there is the absence of some of the hallmark features. 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 His profile is less concerning for the additional presence of primary amnestic syndrome. 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 ? RECOMMENDATIONS? ? 1.?He is encouraged to work with a specialist on helping to identify the presence of a potential alpha-synucleinopathy. This could include other neuroimaging scans (such as a COLBY Scan) and/or potentially a skin biopsy.? ? 2.?Continuing to monitor for changes is recommended and providing additional supports, as this is likely to worsen over time based on the declines captured on testing.? ? 3.?He is encouraged to continue to manage his cardiovascular health as the risk of future decline is likely, in part, related to this. This includes managing chronic conditions, engaging in regular physical activity, reducing stress, and eating a heart healthy diet.? ? 4.?Engaging in mentally, socially, and physically stimulating activities is recommended, as this is not only good for overall health and well-being but cognitive health.? ? 5.?Resources through the [facility] and the Alzheimer?s Disease Association (ww.alz.org) might be beneficial.? ? 6.?If in the future he or his family would like to continue to monitor for future decline, a re-evaluation would be warranted in 12-18 months.? It was a pleasure to meet with Mr. Bravo and participate in his care. These results and recommendations were discussed with him and his spouse following this evaluation. If there are any questions regarding the results and recommendations presented in this evaluation, please do not hesitate to contact the office at [phone].? Irma Franklin, PhD Clinical Neuropsychologist? Licensed Psychologist? Assessment & Plan Assessment & Plan (1) Parkinson's disease without dyskinesia: Code(s): G20.A1 - Parkinson's disease without dyskinesia, without mention of fluctuations Category: Medical (2) REM sleep behavior disorder: Code(s): G47.52 - REM sleep behavior disorder Category: Medical (3) Major neurocognitive disorder: Code(s): F03.90 - Unspecified dementia, unspecified severity, without behavioral disturbance, psychotic disturbance, mood disturbance, and anxiety Category: Medical Plan Follow-up 12-18 month neuropsychiatric evaluation at [facility] neuropsychiatry- as previously ordered Previous workup: * Brain MRI w/o- mild scattered chronic microvascular ischemic changes. * DaTSCAN- right greater than left dopaminergic deficiency- done at [facility]. * neuropsych evaluation: mild dementia, however there were notable declines since previous evaluation 18 months prior. Continue medication reminders on his watch, which has been led to him improve his medication compliance. Continue memantine IR 10 mg twice a day Continue CD-LD IR 25-100mg 2 tabs 4 times a day Continue venlafaxine 75 mg p.o. b.i.d. Continue clonazepam 0.5mg and melatonin q.h.s. Continue to keep bedroom/sleep area free from clutter. Continue to monitor mood. As patient has increased motivation, discuss local PD exercise classes, such as at many of the local [employer]. Information also shared on the [place] [employer], as they have many good resources for finding local exercise and social support classes. Follow-up with the [facility] as scheduled f/u in 6 months or sooner prn. Medications: Changed From carbidopa-levodopa 25-100 mg 1 tab PO TID 90 days 270 tabs 1RF To carbidopa-levodopa 25-100 mg 2 tabs PO QID 720 tabs 1RF 90 days From folic acid 1 mg PO DAILY To folic acid 1 mg PO DAILY 90 tabs 1RF 90 days Refilled venlafaxine 75 mg PO BID 180 tabs 1RF anxiety/depression 90 days memantine 10 mg PO BID 180 tabs 1RF 90 days Coding Level of Care Code Est Pt Level 4 (53332) Complex EM visit Add On G2211 Diagnoses Parkinson's disease without dyskinesia G20.A1 REM sleep behavior disorder G47.52 Major neurocognitive disorder F03.90
--- OUTSIDE RECORDS SUMMARY | 2025-08-10 12:37 | XMS_ITS | Encounter Summary ---
Author Organization [facility] Address [address] [place] [id number] Care Team Providers Care Manager School Name Role Phone Israel Magana MD Primary Care Provider + [phone] Encounter Details Date Type Department Care Team ([facility] st Contact Info) Description 07/05/2021 Documentation [facility] [address] [id number] Chema Gee MD [address] [place] [phone] Social History Tobacco Use Types Packs/Day Years [...] 2, IM 3, PO 4, SC 5, NC 6, Sublingual 7, Inhaled 8, Topical 9, Other Start Date (DDMMMYYYY) Ongoing/Stop Date (DDMMMYYYY) Indication 1 - Adverse Event (specify) 2 - Medical History (specify) 3 - Premedication 4 - Prophylaxis 5 - Other (specify) Tamsulosin 0.4 mg 1, QD 3, PO UNK 2010 Ongoing 2- Medical History - BPH Melatonin .5 mg 7, Other 3 tab at night 3, PO UNK 2020 Ongoing 2- Medical History- RBD Losartan 100 mg 1, QD 3, PO 2010 Ongoing 2- Medical History- Hypertension Effexor XR 37.5 mg 1, QD 3, PO UNK 2017 Ongoing 2- Medical History- Anxiety Metformin 1000 mg 2, BID 3, PO 2010 Ongoing 2- Medical History- diabetes Atorvastatin 40 mg 1, QD 3, PO UNK 2010 Ongoing 2- Medical History- High cholesterol Folic Acid 1 mg 1, QD 3, PO UNK 2013 Ongoing 5- Other- Vitamins Aspirin 81 mg 1, QD 3, PO UNK 2010 Ongoing 4-PPX Methotrexate 2.5 mg 7, 4 tab once a/week 3, PO 2006 Ongoing 2- Medical History Lapoic acid 600 mg 1, QD 3,PO UNK 2010 Ongoing 5- Other- Vitamins Adverse Events: none Patient was able to print/save a signed copy of the consent form from [employer]. Patient knows to call with any questions or concerns. documented in this encounter Plan of Treatment Upcoming Encounters Date Type Department Care Team (Late st Contact Info) Description 01/04/2026 10:00 AM EDT Office Visit [facility] [address] [place] [id number] Valentín Vázquez MD [address] [place] [phone] documented as of this encounter Visit Diagnoses Not on filedocumented in this encounter Care Teams Manager School Relationship Specialty Start Date End Date Israel Magana MD [address] [place] [id number] PCP - General Internal Medicine 08/31/21 documented as of this encounter
--- OUTSIDE RECORDS SUMMARY | 2025-08-10 12:37 | XMS_ITS | Clinical Summary ---
Author Organization [address] Address [address] [place] [phone] Phone Care Team Providers Care Cooperative Education Coordinator Name Role Phone Israel Magana MD Primary Care Provider + [phone] Allergies Active Allergy Reactions Criticality Noted Date Comments Benazepril Cough 01/29/2023 Duloxetine Unknown 01/29/2023 fatigue Sertraline Unknown 01/29/2023 Medications * This document contains information received from the source organization and may not represent a complete record from that organization. venlafaxine (EFFEXOR) 75 mg Immediate Release tablet Take 1 tablet (75 mg total) by mouth 2 (two) times daily. 5 Active tamsulosin (FLOMAX) 0.4 mg 24 hr capsule Take 1 capsule (0.4 mg total) by mouth daily. 3 Active metFORMIN (GLUCOPHAGE) 1000 mg tablet Take 1 tablet (1,000 mg total) by mouth 2 (two) times daily. 3 Active methotrexate 2.5 mg tablet Take 4 tablets (10 mg total) by mouth once a week. 5 Active magnesium oxide 500 mg magnesium tablet Take 1 tablet (500 mg total) by mouth at bedtime. 5 Active losartan (COZAAR) 100 mg tablet Take 1 tablet (100 mg total) by mouth daily. 2 Active folic acid (FOLVITE) 1 mg tablet Take 1 tablet (1 mg total) by mouth daily. 3 Active TRELEGY ELLIPTA 200-62.5-25 mcg DsDv Inhale 1 puff into the lungs daily. 4 Active fluticasone propionate (FLONASE) 50 mcg/actuation nasal spray See Instructions , USE 2 SPRAYS IN EACH NOSTRIL DAILY, USE OPPOSITE HAND FOR EACH NOSTRIL, # 48 Gm, 3 Refills, 09/30/23 11:33:00 EST, [facility], 0, USE 2 SPRAYS IN EACH NOSTRIL DAILY, USE OPPOSITE HAND FOR EACH NOSTRIL, 175, cm, 10/... 4 Active finasteride (PROSCAR) 5 mg tablet Take 1 tablet (5 mg total) by mouth daily. 4 Active busPIRone (BUSPAR) 7.5 mg tablet Take 1 tablet (7.5 mg total) by mouth 2 (two) times daily. 4 Active calcium citrate 1185 mg (calcium 250 mg) per tablet Take 1 tablet (250 mg total) by mouth Every Friday, Friday, and Friday. Active atorvastatin (LIPITOR) 40 mg tablet Take 1 tablet (40 mg total) by mouth. 2 Active ascorbic acid, vitamin C, (VITAMIN C) 500 mg tablet Take 1 tablet (500 mg total) by mouth daily. Active alpha lipoic acid 600 mg Tab Take 1 tablet by mouth daily. Active FREESTYLE LITE test strips USE 1 STRIP THREE TIMES A DAY BEFORE MEALS 5 Active dulaglutide (TRULICITY) 3 mg/0.5 mL Pen Injector Inject 1 Pen (3 mg total) under the skin once a week. Active melatonin 10 mg Tab Take 20 mg by mouth nightly. Active clonazePAM (KLONOPIN) 0.5 mg tablet Take 1 tablet (0.5 mg total) by mouth at bedtime. Active carbidopa-levo dopa (SINEMET) 25-100 mg per immediate release tablet Take 2 tablets by mouth 4 (four) times daily. Week 1: sinemet 25/100 2 tabs - 1.5 tabs - 1.5 tabs - 1.5 tabs Week 2: sinemet 25/100 2 tabs - 1.5 tabs - 2 tabs - 1.5 tabs Week 3: sinemet 25/100 2 tabs - 2 tabs - 2 tabs - 1.5 tabs Week 4: sinemet 25/100 2 tabs - 2 tabs - 2 tabs - 2 tabs 720 tablet 3 5 026 Active carbidopa-levo dopa (SINEMET) 25-100 mg per immediate release tablet Take 1.5 tablets by mouth 4 (four) times daily. Week 1: sinemet 25/100 1.5 tab - 1 tab - 1 tab - 1 tab Week 2: sinemet 25/100 1.5 tab - 1 tab - 1.5 tab - 1 tab Week 3: sinemet 25/100 1.5 tab - 1.5 tab - 1.5 tab - 1 tab Week 4: sinemet 25/100 1.5 tab - 1.5 tab - 1.5 tab - 1.5 tab 540 tablet 3 5 025 Discontinued carbidopa-levo dopa (SINEMET) 25-100 mg per immediate release tablet Take 2 tablets by mouth 4 (four) times daily. Week 1: sinemet 25/100 2 tabs - 1.5 tabs - 1.5 tabs - 1.5 tabs Week 2: sinemet 25/100 2 tabs - 1.5 tabs - 2 tabs - 1.5 tabs Week 3: sinemet 25/100 2 tabs - 2 tabs - 2 tabs - 1.5 tabs Week 4: sinemet 25/100 2 tabs - 2 tabs - 2 tabs - 2 tabs 720 tablet 3 5 025 Discontinued Active Problems Problem Noted Date Diagnosed Date Parkinson's disease 08/03/2025 Research study patient 07/08/2021 Encounters Date Type Department Care Team Description 08/04/2025 Social Work [facility] at [address] [place] [phone] Yoon Dorantes LCSW 08/04/2025 Telephone [facility] at [address] [place] [phone] Marcie España CPHT Appointment; Referral 08/03/2025 10:00 AM EST Office Visit [facility] at [address] [place] [phone] Valentín Vázquez MD Parkinson's disease without dyskinesia or fluctuating manifestations (HC Code) (HC CODE) (Primary Dx); RBD (REM behavioral disorder); Fatigue, unspecified type 08/03/2025 9:30 AM EST Office Visit [facility] at [address] [place] [address], [place] [address] Josué Guevara, PT 08/03/2025 9:00 AM EST Office Visit [facility] at [address] [place] [address], [place] [address] Tracey Cardona, OT 08/03/2025 Social Work [facility] at [address] [place] [address], [place] [address] Yoon Dorantes LCSW 08/03/2025 Documentation [facility] at the [address] [id number] Tracey Cardona, OT Parkinson's disease, unspecified whether dyskinesia present, unspecified whether manifestations fluctuate (HC Code) (HC CODE) (Primary Dx) 08/03/2025 Documentation [facility] at the [address] [address] Josué Guevara, PT Parkinson's disease, unspecified whether dyskinesia present, unspecified whether manifestations fluctuate (HC Code) (HC CODE) (Primary Dx) 07/27/2025 Telephone [facility] at [address] [place] [address], [place] [address] Kate Carpenter, RN Appointment 05/24/2025 Telephone [facility] at [address] [place] [phone] Gila Smith, KalynD Appointment (Sinemet titration) 05/19/2025 Telephone [facility] at [address] [place] [phone] Marcie España CPHT Appointment; Referral 05/12/2025 Telephone [facility] at [address] [place] [phone] Kate Carpenter, RN Other 05/11/2025 4:00 PM EDT Office Visit [facility] at [address] [place] [phone] Valentín Vázquez MD Parkinson's disease without dyskinesia or fluctuating manifestations (HC Code) (Primary Dx); Fatigue, unspecified type; RBD (REM behavioral disorder) 05/11/2025 Social Work [facility] at [address] [place] [phone] Yoon Dorantes LCSW from Last 3 Months Immunizations Immunization Administration Dates Next Due Influenza, split virus, triv alent, Preservative Free 08/09/2019 Influenza, trivalent, inject able, contains preservative 07/02/2024,07/11/2023,07/16/2022,07/27,06/29/2021,08/24/2018,06/29/2018 ,07/18/2016,07/21/2015,06/29/2014,09/2012,08/18/2012,07/05/2010 Influenza, unspecified formulation 06/19,05/30/2017,06/29/2011,06/13,08/04/2008,07/14/2007,07/16/2006 Pneumococcal conjugate 20 va lent (PCV20) 02/21/2023 Pneumococcal conjugate PCV 13 06/26/2015 Pneumococcal polysaccharide PPSV23 04/02/2019, RSV, recombinant, adjuvant, adult IM (Arexvy) 08/05/2023 Tdap 11/06/2021 Tetanus toxoid, unspecified formulation 10/19/2002 ZOSTER LIVE (Zostavax) 09/11/2014 ZOSTER RECOMBINANT (Shingrix) 03/13/2019, 019 Social History Tobacco Use Types Packs/Day Years Used Date Smoking Tobacco: Former Cigarettes Passive Smoke Exposure: Past Smokeless Tobacco: Former Tobacco Cessation:Counseling Given: Not Answered PHQ-2 Answer Date Recorded PHQ-2 Total Score 0 05/11/2025 Interpersonal Safety Answer Date Record ed Is there anyone in your life that is hurting or threatening you in anyway? Not on file 05/11/2025 Physical Indicators of Abuse No evidence of phys ical abuse 05/11/2025 Sex and Gender Information Value Date Recorded Sex Assigned at Male 08/30/2021 10:04 AM EST Legal Sex Male 2:12 PM EDT Gender Identity Male 08/30/2021 10:04 AM EST Sexual Orientation Straight 08/30/2021 10 :04 AM EST Last Filed Vital Signs Vital Sign Reading Time Taken Comments Blood Pressure 119/76 08/03/2025 8:40 AM EST Pulse 74 08/03/2025 8:40 AM EST Temperature 36.7 C (98 F) 08/03/2025 8:40 AM EST Respiratory Rate 14 08/03/2025 8:40 AM EST Oxygen Saturation 99% 08/03/2025 8:40 AM EST Inhaled Oxygen Concentration - - Weight 106.6 kg (235 lb) 08/03/2025 8:40 AM EST Height 175.3 cm (5' 9 ) 08/03/2025 8:40 AM EST Body Mass Index 34.7 08/03/2025 8:40 AM EST Plan of Treatment Upcoming Encounters Date Type Department Care Team (Late st Contact Info) Description 01/04/2026 10:00 AM EDT Office Visit [facility] [address] [place], [place] [id number] Valentín Vázquez MD [address] [place] [address] [place] [phone] Health Maintenance Due Date Last Done Comments HIV screening 1965 Hepatitis C screening 1970 Prediabetes Surveillance 1970 Lipid disorder screening 1992 Colon cancer screening, Colonoscopy 1997 Diabetes screening 1997 Aortic Aneurysm screening 2017 Influenza vaccine 04/29/2025 07/02/2024, , 07/16/2022, Additional history exists Covid-19 vaccine series ( season) 2025 07/30/2024, 08/05/2023, 09/17/2021, Additional history exists Tetanus adult (Td q 10,TDAP once) 11/06/2031 11/06/2021 Shingles vaccine (Zostavax) Discontinued 09/11/2014 Shingles vaccine (Shingrix) Completed 03/13/2019, 0 10/05/2018 Pneumococcal Vaccine (50+ years) Completed 02/21/2023, 04/02/2019, 06/26/2015, Additional history exists RSV Immunization Completed 08/05/2023 Meningococcal B Vaccine Aged Out No l onger eligible based on patient's age to complete this topic Meningococcal Vaccine Aged Out No ruthy kulwant eligible based on patient's age to complete this topic Insurance MEDICARE Dtime MEDICARE FOR LIFE MEDICARE FOR LIFE Care Teams Cooperative Education Coordinator Relationship Specialty Start Date End Date Israel Magana MD [address] [place] [phone] PCP - General Internal Medicine 08/31/21
--- OUTSIDE RECORDS SUMMARY | 2025-08-10 12:37 | XMS_ITS | Encounter Summary ---
Author Organization [facility] Address [address] [place] [phone] Care Team Providers Care Digital Music Instructor Name Role Phone Israel Magana MD Primary Care Provider [phone] Encounter Details Date Type Department Care Team (Late st Contact Info) Description 07/05/2021 Scanned Document INTERFACE DEFAULT [address] [place] [phone] System, Provider Not In Social History Tobacco [...] EDT Office Visit [facility] at [address] [place] [phone] Valentín Vázquez MD [address] [facility] [place] [phone] documented as of this encounter Visit Diagnoses Not on filedocumented in this encounter Care Teams Digital Music Instructor Relationship Specialty Start Date End Date Israel Magana MD [facility] [place] [phone] PCP - General Internal Medicine 08/31/21 documented as of this encounter
--- OUTSIDE RECORDS SUMMARY | 2025-08-10 12:37 | XMS_ITS | Clinical Summary ---
Author Organization [facility] Address [address] [address] Phone Care Team Providers Care Negative Notcher Name Role Phone Rafiq Hartmann MD Primary Care Provider [phone] Allergies Active Allergy Reactions Criticality Noted Date Comments Benazepril Cough 01/29/2023 Duloxetine 01/29/2023 fatigue Sertraline 01/29/2023 Medications atorvastatin (LIPITOR) 40 MG tablet 023 Active carbidopa-levodop a (SINEMET) 25-100 mg per tablet Take 1 tablet by mouth 3 (three) times a day. 023 Active clonazePAM (KLONOPIN) 0.25 MG disintegrating tablet 0.5 mg as needed. 022 Active folic acid (FOLVITE) 1 MG tablet 022 Active losartan (COZAAR) 100 MG tablet 023 Active melatonin-lemon balm leaf extr 10-1 mg Tab TAKE 2 TABLETS BY MOUTH EVERY NIGHT AT BEDTIME NEEDED FOR INSOMNIA 023 Active methotrexate 2.5 MG Oral tablet Take by mouth. 4 tablets 022 Active tamsulosin (FLOMAX) 0.4 mg Cap Take 0.8 mg by mouth daily. 023 Active venlafaxine (EFFEXOR-XR) 37.5 MG 24 hr capsule Take 75 mg by mouth daily. 023 Active lancets 28 gauge Misc 1 each by Miscellaneous route 3 (three) times a day before meals. 300 each 3 023 Active finasteride (PROSCAR) 5 mg tablet Take 5 mg by mouth daily. 023 Active alpha lipoic acid 600 mg Tab Take 1 tablet by mouth daily. Active magnesium glycinate 100 mg magnesium capsule Take 100 mg by mouth nightly at bedtime. 025 Active busPIRone (BUSPAR) 7.5 MG tablet Take 7.5 mg by mouth 2 (two) times a day. 024 Active FREESTYLE LITE Strp stripsIndications :Type 2 diabetes mellitus with hyperglycemia, without long-term current use of insulin USE 1 STRIP THREE TIMES A DAY BEFORE MEALS 300 strip 3 025 Active fluticasone-umecl idin-vilanter (TRELEGY ELLIPTA) 200-62.5-25 mcg inhaler Inhale 1 puff into the lungs. 2-3 times a day 024 Active metFORMIN (GLUCOPHAGE) 1000 MG tabletIndications :Type 2 diabetes mellitus with hyperglycemia, without long-term current use of insulin TAKE 1 TABLET TWICE A DAY WITH MEALS 180 tablet 3 025 Active memantine (NAMENDA) 10 MG tablet Take 10 mg by mouth daily. 025 Active dulaglutide (TRULICITY) 3 mg/0.5 mL subcutaneous injectionIndicati ons:Diabetic peripheral neuropathy associated with type 2 diabetes mellitus Inject 0.5 mL (3 mg total) under the skin every 7 days. 6 mL 1 025 Active ascorbic acid, vitamin C, (VITAMIN C) 500 MG tablet Take 500 mg by mouth daily. 2024 Discontinued calcium citrate 250 mg calcium Tab Take by mouth. 2024 Discontinued dulaglutide (TRULICITY) 3 mg/0.5 mL subcutaneous injectionIndicati ons:Type 2 diabetes mellitus with hyperglycemia, without long-term current use of insulin Inject 0.5 mL (3 mg total) under the skin every 7 days. 6 mL 1 025 2024 Discontinued(R sarika) Active Problems Problem Noted Date Diagnosed Date Benign essential hypertension 11/09/2024 Benign lipomatous neoplasm of skin and subcutane ous tissue 11/09/2024 Essential familial hypercholesterolemia 11/09/19 Memory difficulty 11/09/2024 Osteopenia 11/09/2024 Parkinson disease 11/09/2024 REM sleep behavior disorder 11/09/2024 Nephrolithiasis 11/09/2024 Long-term (current) use of i njectable non-insulin antidiabetic drugs 11/09/2024 Assessment & Plan (05/08/2025 10:25 AM EDT): Continue Trulicity Assessment & Plan (11/09/2024 10:32 AM EST): Will maintain his bydureon dosing. He had previously used trulicity but had to switch to bydureon due to lack of trulicity availability at the pharmacy. 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 Bydureon Bcise pen was discontinued and was switched to Trulicity 3 mg weekly, first dose 4 days ago without side effects. He did have some vomiting, constipation and weakness at times on the Bydureon. He lost intentionally 21 pounds since 10/2024. He has mild intermittent paresthesia on his feet. He takes alpha lipoid acid. -Continue Trulicity and metformin -Continue ALA -Call if any GI side effects on the Trulicity and if so we will decrease the dose to 1.5 mg weekly -Discussed importance of doing at least 30 minutes of exercise most days to help keep muscle mass -Increase protein intake to help keep muscle mass BPH (benign prostatic hyperplasia) 07/11/2023 Diabetic peripheral neuropat hy associated with type 2 diabetes mellitus 01/29/2023 01/29/2023 Assessment & Plan (07/26/2025 10:44 AM EDT): Control is good based upon the patient's recent A1C of 6.1% and his SMBG readings. He is not using any medications to cause hypoglycemia. Will maintain his medication regimen. Continue to work on eating healthy and being active. To call or message with any issues managing his glucose levels. Up to date with [facility]. Labs ordered to be done prior to his next visit. I have maintained a long-term, longitudinal relationship with this patient, overseeing care of chronic conditions, including diabetes. This care relationship has significantly influenced my decision-making and treatment plans during today's encounter. Assessment & Plan (05/08/2025 10:25 AM EDT): See below Assessment & Plan (11/09/2024 10:35 AM EST): Control is good based upon the patient's recent A1C of 6.5% and his SMBG readings. He is not using any medications to cause hypoglycemia. He was worried with his weight gain over the last few months his glucose levels would be higher. He is continuing to try and watch his diet. When the weather is warmer he will get back out to do some walking again. Will maintain his medication regimen. Continue to work on eating healthy and being active. To call or message with any issues managing his glucose levels. Up to date with [facility] Labs reviewed from 11/02/[address] Condon. Labs ordered to be done prior to his next visit. I have maintained a long-term, longitudinal relationship with this patient, overseeing care of chronic conditions, including diabetes. This care relationship has significantly influenced my decision-making and treatment plans during today's encounter. Assessment & Plan (05/07/2024 9:22 AM EDT): Control is good based upon the patient's SMBG readings and his recent A1C of 6.6%. He is not using any medications to cause hypoglycemia. He is tolerating the bydureon well. Continue to work on eating healthy and being active. To call or message with any issues managing his glucose levels. Up to date with [facility]. Labs ordered to be done prior to next visit Assessment & Plan (11/05/2023 9:47 AM EST): Control is good based upon the patient's SMBG readings and his recent A1C of 6.8%. He is not using any medications to cause hypoglycemia. He is having a hard time getting [facility], he was told by them to try the local pharmacy. Will send a prescription to his local pharmacy to see if they can get it for him. If they cannot get the 1.5 mg dose will try getting the 0.75 mg dose. Continue to work on eating healthy and being active. To call or message with any issues managing his glucose levels. Up to date with [facility]. Labs ordered to be done prior to next visit Type 2 diabetes mellitus wit h hyperglycemia, without long-term current use of insulin 12/24/2022 Overview (02/05/2024): Dx~2013 or earlier. Old records not available. Assessment & Plan (02/05/2024 9:38 PM EDT): Good control by last A1c of 7.1% though it has increased since 6.4% in 06/2023 and 6.8% in 10/2023. Trulicity dose increased to 3 mg weekly in 10/2023. He remains on 1000 mg metformin twice a day. Plan to continue current treatment. Continue to work on meal plan and regular exercise to facilitate weight loss. Blood pressure and lipids are at target. Up-to-date with eye exam, reports reviewed from 08/2024, no diabetic retinopathy. He has some pain on the ball of right foot with standing and walking. Advised to see tire service supervisor. Assessment & Plan (08/06/2023 10:25 AM EST): Control is good based upon the patient's SMBG readings and his recent A1C. No frequent or severe hypoglycemia. He recently had a reading to 61, not fully sure was a true low, he had some juice and was fine. Will maintain his regimen. Continue to work on eating healthy and being active. To call or message with any issues managing his glucose levels. Up to date with [facility]. Labs ordered to be done prior to next visit Assessment & Plan (05/29/2023 11:26 PM EDT): Control is good. Last A1c 6.5% on 05/02/2023. Lost intentionally 15 pounds since January. Remains on Trulicity 1.5 mg weekly and metformin 1000 mg twice a day. Congratulated on his efforts to improve his diabetes control. Continue to work on healthy meal plan and regular exercises. Keep current medications. Call with problems in blood sugars. Assessment & Plan (01/29/2023 11:14 AM EDT): Control is good based upon the patient's SMBG readings. He is not using any medications to cause hypoglycemia. Will maintain his regimen. Continue to work on eating healthy and being active. Up to date with [facility]. Labs ordered today Obstructive sleep apnea syndrome 06/21/2020 Asthma, mild persistent 11/09/2018 Rheumatoid arthritis 04/21/2007 Overview (11/09/2024): DR galvin Chronic bronchitis with COPD (chronic obstructive pulmonary disease) 11/11/2006 Encounters Date Type Department Care Team Description 07/27/2025 Telephone [facility] [address] [place] [address] [place] [phone] Cristela Trotter Forms & Paperwork 07/26/2025 10:00 AM EDT Office Visit [facility] [address] [place] [address] [place] [id number] Evy Carrero PA-C Diabetic peripheral neuropathy associated with type 2 diabetes mellitus (Primary Dx) 07/20/2025 9:41 AM EDT - 07/20/2025 11:59 PM EDT Hospital Encounter [facility] [place] [place] [id number] June Condon MD Discharge Disposition: Home or Self Care 06/06/2025 Refill [facility] [address] [place] [address] [place] [id number] Evy Carrero PA-C Medication Refill from Last 3 Months Social History Tobacco Use Types Packs/Day Years Used Date Smoking Tobacco: Former Cigarettes Smokeless Tobacco: Never Tobacco Cessation:Counseling Given: Not Answered Alcohol Use Standard Drinks/Week Comments Never 0 (1 standard drink = 0.6 oz pur e alcohol) Education Answer Date Recorded Are you interested in more education? Not on tripp e 01/24/2023 Are you concerned about learning? Not on file 01/24/2023 No 01/24/2023 No 01/24/2023 Digital Access Answer Date Recorded No 02/25/2023 No 02/25/2023 Reliable internet access at home? Not on file 02/25/2023 Device with a working camera? Not on file Sex and Gender Information Value Date Recorded Sex Assigned at Not on file Legal Sex Male 9:59 AM EDT Gender Identity Not on file Sexual Orientation Not on file Last Filed Vital Signs Vital Sign Reading Time Taken Comments Blood Pressure 124/74 07/26/2025 9:58 AM EDT Pulse 77 07/26/2025 9:58 AM EDT Temperature 36.7 C (98 F) 05/05/2025 9:20 AM EDT Respiratory Rate 16 05/05/2025 9:20 AM EDT Oxygen Saturation 98% 07/26/2025 9:58 AM EDT Inhaled Oxygen Concentration - - Weight 106.9 kg (235 lb 9.6 oz) 07/26/2025 9:58 AM EDT Height 175.3 cm (5' 9.02 ) 07/26/2025 9:58 AM ED T Body Mass Index 34.78 07/26/2025 9:58 AM EDT Plan of Treatment Upcoming Encounters Date Type Department Care Team (Late st Contact Info) Description 11/09/2025 9:40 AM EST Office Visit [facility] [address] [place] [address] June Condon MD [address] [place] [address] [address] [place] [address] 02/07/2026 9:40 AM EDT Office Visit [facility] [address] [place] [address] Evy Carrero PA-C [address] [place] [phone]) [email or web address] Health Maintenance Due Date Last Done Comments COVID-19 VACCINE (#1) 1957 DEPRESSION SCREENING 1964 SMOKING Hx and SMOKELESS TOBACCO SCREENING 1965 HEPATITIS C SCREENING 1970 COLOGUARD 1997 COLONOSCOPY 1997 COLORECTAL CANCER SCREENING 1997 FIT TEST 1997 FOBT 1997 SIGMOIDOSCOPY 1997 VIRTUAL COLONOSCOPY 1997 RSV VACCINE (1 - Risk 50-74 years 1-dose series) 2002 ABDOMINAL AORTIC ANEURYSM (AAA) SCREENING 2017 DIABETIC EYE EXAM 12/24/2022 INFLUENZA VACCINE (#1) 2025 , 07/27/2021, 06/29/2021, Additional history exists HEMOGLOBIN A1C 01/18/2026 07/20/2025, 03/29, 11/02/2024, Additional history exists BLOOD PRESSURE 01/24/2026 07/26/2025 CREATININE LEVEL 07/20/2026 07/20/2025, , 11/02/2024, Additional history exists POTASSIUM LEVEL 07/20/2026 07/20/2025, 03/29, 11/02/2024, Additional history exists Adult Td,Tdap Booster 11/06/2031 11/06/2021 ZOSTER VACCINES Completed 03/13/2019, 03/2019, 09/11/2014 PNEUMOCOCCAL VACCINES (50+ years) Completed 02/21/2023, 04/02/2019, 06/26/2015, Additional history exists HEPATITIS A VACCINES Aged Out No long er eligible based on patient's age to complete this topic HIB VACCINES Aged Out No longer eligi ble based on patient's age to complete this topic IPV VACCINES Aged Out No longer eligi ble based on patient's age to complete this topic MENINGOCOCCAL VACCINES (ACWY) Aged Out No longer eligible based on patient's age to complete this topic MENINGOCOCCAL VACCINES (B) Aged Out N o longer eligible based on patient's age to complete this topic Medical Devices Not on file Procedures Procedure Name Priority Date/Time Associated Diagnosis Comments MICROALBUMIN/CREATININ E RATIO, RANDOM URINE Routine 07/20/2025 10:30 AM EDT Type 2 diabetes mellitus with diabetic polyneuropathy, without long-term current use of insulin COMPREHENSIVE METABOLIC PANEL (CMP) Routine 07/20/2025 10:21 AM EDT Type 2 diabetes mellitus with diabetic polyneuropathy, without long-term current use of insulin HEMOGLOBIN A1C Routine 07/20/2025 10:21 AM EDT Diabetic peripheral neuropathy associated with type 2 diabetes mellitus LIPID PANEL Routine 07/20/2025 10:21 AM EDT Type 2 diabetes mellitus with diabetic polyneuropathy, without long-term current use of insulin from Last 3 Months Results * Microalbumin/creatinine ratio, random urine (07/20/2025 10:30 AM EDT) URINE MICROALBUMIN <1.2 0 - 2.3 mg/dL [facility] URINE CREATININE 149 mg/dL [facility] MICROALB/CRE RATIO NOT CALCULATED 0 - 20 mg/g Cre [facility] Comment:due to Microalbumin <1.2 Urine (Urine) 07/20/2025 10: 30 AM EDT 07/20/2025 10:32 AM EDT us June Condon MD LAB URINE ORDERABLES Final Res ult Performing Organization Address City/State/[facility] Co de Phone Number [address] [address] * (ABNORMAL) Comprehensive metabolic panel (07/20/2025 10:21 AM EDT) SODIUM 140 133 - 146 mmol/L [facility] POTASSIUM 4.5 3.3 - 5.1 mmol/L [facility] CHLORIDE 104 96 - 108 mmol/L [facility] CO2 27 21 - 35 mmol/L [facility] BUN 20(H) 6 - 19 mg/dL [facility] CREATININE 1.00 0.5 - 1.5 mg/dL [facility] GLUCOSE 127(H) 70 - 99 mg/dL [facility] ALBUMIN 4.1 3.9 - 4.8 g/dL [facility] TOTAL PROTEIN 6.6 6.5 - 8.0 g/dL [facility] CALCIUM 9.3 8.4 - 10.3 mg/dL [facility] ALKALINE PHOSPHATASE 83 39 - 117 U/L [facility] TOTAL BILIRUBIN 1.0 0.0 - 1.2 mg/dL [facility] AST 22 0 - 37 U/L [facility] ALT <5 0 - 40 U/L [facility] GLOBULIN 2.5 1 - 4.8 g/dL [facility] EGFR 80 >59 mL/min/1.7 3m2 [facility] Comment:Estimated glomerular filtration rate calculated using the CKD-EPI refit equation. ANION GAP 14 10 - 20 mmol/L [facility] Blood 07/20/2025 10:2 1 AM EDT 07/20/2025 10:27 AM EDT us June Condon MD LAB BLOOD BKR ORDERABLES Final Result [address] [address] * (ABNORMAL) Hemoglobin A1c (07/20/2025 10:21 AM EDT) HEMOGLOBIN A1C 6.1(H) 4.3 - 5.8 % [facility] Blood 07/20/2025 10:2 1 AM EDT 07/20/2025 10:28 AM EDT us June Condon MD LAB BLOOD BKR ORDERABLES Final Result [address] [address] * (ABNORMAL) Lipid panel (07/20/2025 10:21 AM EDT) HDL 52 mg/dL [facility] Comment: Interpretation <40 mg/dL: Low HDL cholesterol (major risk factor for CHD) Greater than or equal to 60 mg/dL: High HDL cholesterol ( negative risk factor for CHD) HDL - cholesterol is affected by a number of factors, e.g. smoking, excerise, hormones, sex and age. CHOLESTEROL 94 0 - 240 mg/dL [facility] TRIGLYCERIDES 58 30 - 160 mg/dL [facility] LDL 30(L) 50 - 129 mg/dL [facility] Comment: LDL levels in terms of risk for coronary heart disease: <100 mg/dL: Optimal 100-129 mg/dL: Near or above optimal 130-159 mg/dL: Borderline high 160-189 mg/dL: High >190 mg/dL: Very High CARDIAC RISK RATIO 1.8(L) 3.4 - 5.0 [facility] Blood 07/20/2025 10:2 1 AM EDT 07/20/2025 10:28 AM EDT us June Condon MD LAB BLOOD BKR ORDERABLES Final Result [facility] [address] [place] [address] from Last 3 Months Insurance MEDICARE PART A & B [facility] MEDICARE SUPPLEMENT MEDICARE PART A & B [employer] MEDICARE SUPPLEMENT MEDICARE PART A & B [employer] MEDICARE SUPPLEMENT MEDICARE PART A & B [facility] MEDICARE SUPPLEMENT MEDICARE PART A & B [employer] MEDICARE SUPPLEMENT MEDICARE PART A & B [employer] MEDICARE SUPPLEMENT Care Teams Negative Notcher Relationship Specialty Start Date End Date Rafiq Hartmann MD [address] [place] [id number] PCP - General Internal Medicine 12/24/22 Additional Source Comments The information contained in this document represents components of the legal health record. It is not the complete legal health record.[facility]
== END 2025-08-10 12:07 | disposition home or self-care (01) ==
LOC: HO.HSMS 10:32
PROVIDERS: PCP Internal Medicine; Visit Provider Nurse Practitioner Family
DX: G20.A1 Parkinson's disease without dyskinesia, without mention of fluctuations (principal); G47.52 REM sleep behavior disorder; F03.90 Unspecified dementia, unspecified severity, without behavioral disturbance, psychotic disturbance, mood disturbance, and anxiety
CPT/HCPCS: 99214; G2211

== ENCOUNTER → 2025-08-10 10:31 | Outpatient (BNVA) | payer MEDICARE, OTHER, SELFPAY | PROVIDERS: PCP Internal Medicine; Visit Provider Nurse Practitioner Family | DX: G20.A1 Parkinson's disease without dyskinesia, without mention of fluctuations (principal); F03.90 Unspecified dementia, unspecified severity, without behavioral disturbance, psychotic disturbance, mood disturbance, and anxiety; F02.80 Dementia in other diseases classified elsewhere, unspecified severity, without behavioral disturbance, psychotic disturbance, mood disturbance, and anxiety; G47.52 REM sleep behavior disorder | CPT/HCPCS: 99212 ==